=== PATIENT | female | born 1955 | race Caucasian/White ===

== ENCOUNTER 2020-05-29 12:55 | Outpatient (REF) | payer SELFPAY | END 2020-05-29 12:56 | disposition home or self-care (01) | LOC: HO.HAP 12:55 | PROVIDERS: PCP Internal Medicine; Referring Provider Internal Medicine; Visit Provider Internal Medicine | DX: Z46.1 Encounter for fitting and adjustment of hearing aid (principal) | CPT/HCPCS: 99499 ==

== ENCOUNTER 2020-08-25 09:47 | Outpatient (REF) | payer OTHER, SELFPAY ==
--- NOTE | ~2020-08-25 | MM_ITS ---
EXAMINATION: MM SCREENING DIGITAL BREAST TOMOSYNTHESIS, BILATERAL CLINICAL INFORMATION: Screening. Asymptomatic. The lifetime risk of breast cancer based on the Tyrer-Cuzick Model is 5%. COMPARISON: Mammography: 08/20/2019, 08/14/2018, 05/15/2017 TECHNIQUE: Digital breast tomosynthesis is performed in both the craniocaudal and mediolateral oblique views along with computer-aided detection (CAD). Synthesized 2D images are generated from the tomosynthesis. FINDINGS: There are scattered areas of fibroglandular density (ACR BI-RADS breast composition Category b). There is fine fibronodular parenchymal pattern similar to prior studies. There is no developing density or interval mass or architectural abnormality. No abnormal calcifications. The axilla and skin contours are unremarkable. No significant changes. MM/MM tomosynthesis screening BI IMPRESSION: No mammographic evidence of malignancy. ASSESSMENT: BI-RADS 1: Negative RECOMMENDATION: Routine annual mammography screening. This patient's information was entered into a reminder system with a target due date for their next mammogram.
== END 2020-08-25 09:48 | disposition home or self-care (01) ==
LOC: HO.MAMMO 09:47
PROVIDERS: PCP Internal Medicine; Visit Provider Internal Medicine
DX: Z12.31 Encounter for screening mammogram for malignant neoplasm of breast (principal)
CPT/HCPCS: 77063; 77067

== ENCOUNTER 2021-08-15 08:24 | Outpatient (REF) | payer MEDICARE, SELFPAY ==
--- NOTE | 2021-08-15 11:23 | MHC.AU.AHA ---
Adult Audiological Evaluation Date of Visit: 08/15/21 Reason for Appointment: Audiological evaluation to determine if there has a been a change in hearing sensitivity. Ms. Schmidt has a longstanding history of asymmetrical hearing loss, worse in the left ear. She uses a BiCROS hearing aid system. She notes that the hearing aids have been working well, but feels her hearing may be gradually decreasing. She denies any changes to her medical history. Previous Hearing Test Results: Dr. Varela's office, 07/31/2014- Moderate sloping to profound sensorineural hearing loss bilaterally (tested during active ear infection, right ear thresholds reduced) Screening test on right ear at our clinic 10/16/2014- improved hearing post-ear infection in the right ear, moderate sloping to severe sensorineural hearing loss. Ear History: Recent Ear Infections: Both Ears Ear Infections in Childhood: Both Ears Hearing Instrument History- Right Ear: Website Designer: Phonak Model: Virto V90-312 Serial Number: [id number] Battery Size: 312 Repair Warranty: 04/17/2018 Dispensed By: [facility] Date of Fittin03/28/2015 Hearing Instrument History- Left Ear: Website Designer: Phonak Model: CROS II 312 Serial Number: [id number] Battery Size: 312 Warranty: 04/17/2016 Dispensed By: [facility] Date of Fittin03/28/2015 Otoscopy: Right Ear: Unremarkable Left Ear: Unremarkable Tympanometry: Tympanometry performed due to: To assess integrity of the middle ear system Right Ear: Normal Middle Ear System (Type A) Left Ear: Normal Middle Ear System (Type A) Hearing Evaluation: Transducer(s) Used: Insert earphones, Bone Conduction Method: Conventional Audiometry Stimuli Used: Pure Tones Right Ear: Description of Hearing: Moderate to severe sensorineural hearing loss from 250-8000 Hz. Left Ear: Description of Hearing: Severe to profound sensorineural hearing loss 250-8000 Hz. Hearing in the left ear is 15-25 dBHL worse than the right across all frequencies tested. Speech Recognition Threshold (SRT): Method Used: Monitored Live Voice Stimuli Used: Spondee Words Right Ear: 55 dBHL Left Ear: 80 dBHL Word Discrimination: Method: Recorded Lists Word Lists Used: NU-6 Right Ear: 76% at 85 dBHL Left Ear: 1/10 correct at 100 dBHL. Patient noted that although it was loud, she could not understand the words. Discontinued test. Most Comfortable Level (MCL): Right Ear: 85 dBHL Left Ear: DNT Comparison: Compared to the most recent evaluation: Hearing is stable. Recommendations: Audiological re-evaluation in one year. Hearing aid maintenance performed today. Hearing aid(s) reprogrammed with updated test results. Diagnosis: Primary Diagnosis: H90.3 Bilateral Sensorineural Hearing Loss Services Performed: Comprehensive Audiological Evaluation (CPT 48798) Tympanometry (CPT 51255) Signature: Provider: Javan Cardenas, CCC-A
== END 2021-08-15 08:25 | disposition home or self-care (01) ==
LOC: HO.SH 08:24
PROVIDERS: Visit Provider Internal Medicine
DX: Z01.118 Encounter for examination of ears and hearing with other abnormal findings (principal); H90.3 Sensorineural hearing loss, bilateral
CPT/HCPCS: 92557; 92567

== ENCOUNTER 2021-10-24 08:33 | Outpatient (REF) | payer MEDICARE, SELFPAY ==
--- NOTE | ~2021-10-24 | MM_ITS ---
EXAMINATION: MM SCREENING DIGITAL BREAST TOMOSYNTHESIS, BILATERAL CLINICAL INFORMATION: Screening. Asymptomatic. The lifetime risk of breast cancer based on the Tyrer-Cuzick Model is 4.7%. COMPARISON: Mammography: 08/25/2020 and studies dating back to 11/19/2011. TECHNIQUE: Digital breast tomosynthesis is performed in both the craniocaudal and mediolateral oblique views along with computer-aided detection (CAD). Synthesized 2-D images are generated from the tomosynthesis. FINDINGS: The breasts are heterogeneously dense, which may obscure small masses (ACR BI-RADS breast composition Category c). There is a stable parenchymal pattern of the left breast with no new abnormal dominant mass or suspicious grouping of microcalcifications. About the medial aspect of the right breast approximately 5 cm from the nipple, there is a partially circumscribed density containing a grouping of increasing calcifications with the density measuring approximately 6 mm in diameter. Recommend spot magnification views and craniocaudal and 90-degree mediolateral views. MM/MM tomosynthesis screening BI IMPRESSION: Right breast density and calcifications for further evaluation, as described. ASSESSMENT: BI-RADS 0: Incomplete - Need Additional Imaging Evaluation. RECOMMENDATION: 1. Additional views of the right breast. 2. Targeted ultrasound if warranted after review of the additional views. 3. Radiology department staff will contact the patient for additional imaging. This patient's information was entered into a reminder system with a target due date for their next mammogram.
== END 2021-10-24 08:34 | disposition home or self-care (01) ==
LOC: HO.MAMMO 08:33
PROVIDERS: Visit Provider Internal Medicine
DX: Z12.31 Encounter for screening mammogram for malignant neoplasm of breast (principal)
CPT/HCPCS: 77063; 77067

== ENCOUNTER 2021-11-08 10:56 | Outpatient (REF) | payer MEDICARE, BC, SELFPAY ==
--- NOTE | ~2021-11-08 | MM_ITS ---
EXAMINATION: MM DIAGNOSTIC DIGITAL, RIGHT CLINICAL INFORMATION: Calcifications with questioned density COMPARISON: Mammography: 08/25/2020 and studies dating back to 05/21/2012 TECHNIQUE: Digital mammography is performed in the following views: Spot magnification views in craniocaudal and 90 degree mediolateral views. FINDINGS: The breasts are heterogeneously dense, which may obscure small masses (ACR BI-RADS breast composition Category c). The grouping of calcifications does not appear to be related to a new density with approximately 4 calcifications none which have linear branching forms. No lucent centers are identified and these do not appear to be skin calcifications. Either 6 month follow-up magnification views of the right breast or a stereotactic core biopsy could be considered. Results are discussed with the patient at time of visit. Breast center hollow handle bench worker will call referring provider's office with the above recommendation. MM/MM added views RT IMPRESSION: Increasing grouping of calcifications about the superomedial aspect of the right breast without linear or branching forms. ASSESSMENT: BI-RADS 4: Suspicious (subcategory 4A: Low suspicion for malignancy) RECOMMENDATION: Stereotactic core biopsy versus consideration of 6 month follow-up magnification views of the right breast. Patient stated that she would like to talk to her primary care doctor before deciding.
== END 2021-11-08 10:57 | disposition home or self-care (01) ==
LOC: HO.MAMMO 10:56
PROVIDERS: Visit Provider Internal Medicine
DX: R92.1 Mammographic calcification found on diagnostic imaging of breast (principal)
CPT/HCPCS: 77065

== ENCOUNTER 2021-11-14 07:57 | Outpatient (REF) | payer MEDICARE, SELFPAY ==
--- NOTE | ~2021-11-14 | MM_ITS ---
EXAMINATION: STEREOTACTIC TOMOSYNTHESIS-GUIDED VACUUM-ASSISTED BREAST BIOPSY, RIGHT SPECIMEN RADIOGRAPH, RIGHT POST PROCEDURE DIGITAL MAMMOGRAM, RIGHT CLINICAL INFORMATION: Tight group of a few new calcifications anterior upper inner right breast. COMPARISON: Mammography 11/08/2021, 10/24/2021, 08/25/2020, 08/20/2019. TECHNIQUE/PROCEDURE: Informed consent was obtained from the patient after discussion of the benefits, risks, and alternatives to biopsy today. Patient appeared to understand. Gave opportunity for questions. Patient signed consent form. BIOPSY TABLE: Girltank Prone Biopsy System. LESION: Tight group of a few calcifications anterior upper inner right breast. LOCAL ANESTHESIA: 10 mL carbonated 1% lidocaine; 10 mL 1% lidocaine with epinephrine. DERMATOTOMY: Single skin armando dermatotomy performed. NEEDLE: Elivariva 9-gauge vacuum assisted core biopsy device. APPROACH: craniocaudal. TARGETING: Combination of digital breast tomosynthesis and stereotactic digital mammography used for targeting. CORES: 6. CLIP: ePetWorldurMark T-shaped marker. SPECIMEN RADIOGRAPH: Specimen radiograph is taken in separate room using digital mammography. There is one core with a group of 6 calcifications which vary in size corresponding to the targeted lesion. Another core has a single calcification. POST PROCEDURE UNILATERAL DIGITAL MAMMOGRAM: The post biopsy mammogram is performed in separate room using separate digital mammography equipment from the biopsy procedure. CC and ML views are obtained. There are scattered areas of fibroglandular density (breast composition category: b). Breast tissue composition borders on heterogeneously dense. The clip marker is in position. The calcifications are markedly decreased at the biopsy site consistent with the sampling and no longer clearly visualized. No gross hematoma. The patient tolerated the procedure well. No immediate complications. Home instructions reviewed with the patient. Final pathology results are pending. MM/MM stereotactic biopsy RT IMPRESSION: 1. Digital tomosynthesis-guided core biopsy right breast with clip placement. 2. Specimen radiograph taken and post procedure mammogram. There is satisfactory positioning of the biopsy clip. 3. Final pathology results pending. An addendum report will be issued.
[2021-11-14] MEDS: Lidocaine HCl 1 % 20 ML VIAL 10 ML SUBCUT (09:55)
[2021-11-14] MEDS: Sodium Bicarbonate 8.4% 50 MEQ/50 ML VIAL SUBCUT (09:58)
== END 2021-11-14 07:58 | disposition home or self-care (01) ==
LOC: HO.MAMMO 07:57
PROVIDERS: Visit Provider Internal Medicine
DX: R92.0 Mammographic microcalcification found on diagnostic imaging of breast (principal)
CPT/HCPCS: 19081; 88305; A4648

== ENCOUNTER 2022-10-28 08:13 | Outpatient (REF) | payer MEDICARE, SELFPAY ==
--- NOTE | ~2022-10-28 | MM_ITS ---
EXAMINATION: MM SCREENING DIGITAL BREAST TOMOSYNTHESIS, BILATERAL CLINICAL INFORMATION: Screening. Asymptomatic. The lifetime risk of breast cancer based on the Tyrer-Cuzick Model is 5.0%. COMPARISON: Mammography: November 14, 2021 and studies dating back to April 02, 2016 TECHNIQUE: Digital breast tomosynthesis is performed in both the craniocaudal and mediolateral oblique views along with computer-aided detection (CAD). Synthesized 2D images are generated from the tomosynthesis. FINDINGS: The breasts are heterogeneously dense, which may obscure small masses (ACR BI-RADS breast composition Category c). There are no significant masses, abnormal calcifications, or other abnormalities. MM/MM tomosynthesis screening BI IMPRESSION: No significant changes ASSESSMENT: BI-RADS 1: Negative RECOMMENDATION: Routine annual mammography screening. This patient's information was entered into a reminder system with a target due date for their next mammogram.
== END 2022-10-28 08:14 | disposition home or self-care (01) ==
LOC: HO.MAMMO 08:13
PROVIDERS: PCP Internal Medicine; Visit Provider Internal Medicine
DX: Z12.31 Encounter for screening mammogram for malignant neoplasm of breast (principal)
CPT/HCPCS: 77063; 77067

== ENCOUNTER 2023-09-04 08:04 | Outpatient (REF) | payer SELFPAY ==
--- NOTE | 2023-09-04 10:18 | MHC.AU.HA3 ---
Hearing Instrument Follow-Up- Binaural Date of Visit: 09/04/23 Right Ear: Make, Model, Color, Serial Number: Bob Salas V90-312 SN: [id number] Color: [place] Concrete Pipe Plant Supervisor Repair Warranty: 04/17/2018 Concrete Pipe Plant Supervisor Loss and Damage Warranty: 04/17/2018 Battery Size: 312 Type of Wax Guard: CeruStop Dispensed By: [facility] Date of Fittin03/28/2015 Left Ear: Make, Model, Color, Serial Number: Bob Salas CROS II-312 SN: [id number] Color: [place] Concrete Pipe Plant Supervisor Repair Warranty: 04/17/2016 Concrete Pipe Plant Supervisor Loss and Damage Warranty: 04/17/2016 Battery Size: 312 Dispensed By: [facility] Date of Fittin03/28/2015 Follow-Up Summary: Sara reported her right hearing aid sounds weak. Upon inspection, wax guard partially occluded and significant wax build up noted inside the hearing aid behind the wax guard. Cleaned hearing aid and CROS. Attempted to remove as much wax as possible from inside hearing aid. Removed enough to significantly improve sound quality; however, unable to fully clean out. Replaced wax guard. Sara noticed immediate improvement in office. Discussed option to send for repair; however, she is ready to pursue new hearing aids instead. Sara reported that she has a [employer] benefit through her insurance. Explained that she would need to go to a [employer] provider. She will call her insurance to inquire. Briefly discussed hearing aids and provided gatian sheet. If she decides to pursue hearing aids here, she will obtain a doctor's order for an updated hearing test first. Recommendations: Hearing instrument follow-up or maintenance as needed. Please contact our clinic with any questions or concerns. Diagnosis Code(s): Primary Diagnosis: H90.3 Bilateral Sensorineural Hearing Loss Signature: Provider: Ji Leonard, [facility]
== END 2023-09-04 08:05 | disposition home or self-care (01) ==
LOC: HO.HAP 08:04
PROVIDERS: Visit Provider Internal Medicine
DX: Z46.1 Encounter for fitting and adjustment of hearing aid (principal); H90.3 Sensorineural hearing loss, bilateral
CPT/HCPCS: 92593

== ENCOUNTER 2023-11-03 08:24 | Outpatient (REF) | payer MEDICARE, SELFPAY ==
--- NOTE | ~2023-11-03 | MM_ITS ---
EXAMINATION: MM SCREENING DIGITAL BREAST TOMOSYNTHESIS, BILATERAL CLINICAL INFORMATION: Screening. Asymptomatic. COMPARISON: Mammography: 10/28/2022, 10/24/2021, 08/25/2020, 08/20/2019, and dating back to 2014. Benign stereotactic biopsy right breast 11/14/2021. TECHNIQUE: Digital breast tomosynthesis is performed in both the craniocaudal and mediolateral oblique views along with computer-aided detection (CAD). Synthesized 2D images are generated from the tomosynthesis. FINDINGS: The breasts are heterogeneously dense, which may obscure small masses (ACR BI-RADS breast composition Category c). Post benign biopsy clip noted in the upper inner right breast, middle one third. Benign scattered dystrophic appearing calcifications right greater than left breasts. No suspicious grouping or pleomorphism. Somewhat nodular appearing heterogeneously dense parenchymal pattern is not significantly changed from previous. No developing masses, or developing regions of architectural distortion. No skin or axillary abnormalities. MM/MM tomosynthesis screening BI IMPRESSION: No mammographic evidence of malignancy. Stable benign findings ASSESSMENT: BI-RADS BI-RADS 2 - Benign Findings RECOMMENDATION: Routine annual mammography screening. 1 year F/U This examination should not preclude the clinical evaluation of a suspicious palpable abnormality. This patient's information was entered into a reminder system with a target due date for their next mammogram.
== END 2023-11-03 08:25 | disposition home or self-care (01) ==
LOC: HO.MAMMO 08:24
PROVIDERS: PCP Internal Medicine; Visit Provider Internal Medicine
DX: Z12.31 Encounter for screening mammogram for malignant neoplasm of breast (principal)
CPT/HCPCS: 77063; 77067

== ENCOUNTER → 2023-11-03 08:30 | Outpatient (BNV) | payer MEDICARE, SELFPAY | PROVIDERS: PCP Internal Medicine; Visit Provider Radiology Diagnostic Radiology | DX: Z12.31 Encounter for screening mammogram for malignant neoplasm of breast (principal) | CPT/HCPCS: 77063; 77067 ==

== ENCOUNTER 2023-12-18 10:00 | Outpatient (REF) | payer MEDICARE, SELFPAY | END 2023-12-18 10:01 | disposition home or self-care (01) | LOC: HO.SH 10:00 | PROVIDERS: Visit Provider Internal Medicine | DX: Z01.118 Encounter for examination of ears and hearing with other abnormal findings (principal); H90.3 Sensorineural hearing loss, bilateral | CPT/HCPCS: 92552; 92556 ==

== ENCOUNTER 2023-12-24 12:38 | Outpatient (REF) | payer SELFPAY ==
--- NOTE | 2023-12-25 08:21 | MHC.AU.HA1 ---
Hearing Aid Evaluation Date of Visit: 12/25/23 Historical Information: Description of Hearing: Right ear: moderate to moderately severe SNHL Left ear: moderately severe to severe SNHL Current personal amplification information, if applicable: Phonak Virto V90 312 bicros Summary: Sara contacted her insurance company after our last visit and decided she would like to move forward with hearing aids through our office as her [employer] plan does not offer Phonak aids. Reviewed options for current biCROS technology-- Sara elected to stay with disposable batteries as she relies on her hearing aids and does not want to depend on a rechargeable battery. For this reason we will order Phonak P90 13T biCROS with slimtips in sand beige (Lumity not available in non-rechargeable option at this time, Phonak does not know if this will change anytime soon and Sara does not want to wait). Impressions taken for earmolds without incident, her ITCs have canal locks which she finds helpful so will order earmolds with locks as well. Will contact patient once aids arrive; medical clearance to be submitted to PCP. Hearing Aid Prescription: Based on the individual?s shared listening needs, communication environments, dexterity, desire for connectivity, and personal preferences, the following prescription for amplification has been made: Right ear: Make, Model, Color: Phonak Audeo P90 13T, sand beige Battery Size: 13 Dobby Looms Pegger/Slim Tube: 1P Type of Earmold/Dome/CShell/SlimTip: canal lock slimtip Left ear: Left ear prescription to be same as Right Hearing Aid above: Make, Model, Color: Phonak Audeo P CROS 13, sand beige Battery Size: 13 Dobby Looms Pegger/Slim Tube: 1 CROS transmitter Type of Earmold/Dome/CShell/SlimTip: canal lock slimtip Plan of Care: Patient wishes to purchase hearing aids as prescribed Action Taken/Action Needed: Earmold Impressions Taken Medical Clearance to be requested from PCP/ENT Hearing Instrument Fitting to be scheduled when materials arrive Primary Diagnosis: H90.3 Bilateral Sensorineural Hearing Loss Signature: Provider: Javan Ellis, CCC-A
--- NOTE | 2023-12-25 08:22 | MHC.AU.MED ---
Medical Clearance for Hearing Instrumentation Date: 12/25/23 Patient Name: Sara Schmidt Date of : 1955 Primary Care Provider: Referring Provider: Suraj Arteaga MD We have seen your patient on 12/25/23 and have determined that they are a candidate for amplification (See accompanying report). Specifically, they would benefit from: Hearing aid use in both ears There is a statute that addresses Medical Evaluation Requirements prior to fitting a patient with a hearing aid. According to [place] statute 265 CMR:6.03(1), (a) General. Except as provided in 265 CMR 6.03(1)(b), a certified medical transcriptionist shall not sell a hearing aid unless the prospective user has presented to the certified medical transcriptionist a written statement signed by a licensed physician that states that the patient's hearing loss has been medically evaluated and the patient may be considered a candidate for a hearing aid. The medical evaluation must have taken place within the preceding six months. Please note: Due to the [place] Statute referenced above, we cannot accept a signature other than that of a licensed physician. AIRCRAFT ASSEMBLER and PA signatures cannot be accepted. I am in agreement with the above recommendation. There is no medical contraindication for hearing instrumentation. Physician Signature Date Physician Name (Printed)
== END 2023-12-24 12:39 | disposition home or self-care (01) ==
LOC: HO.HAP 12:38
PROVIDERS: Visit Provider Internal Medicine
DX: Z46.1 Encounter for fitting and adjustment of hearing aid (principal); H90.3 Sensorineural hearing loss, bilateral
CPT/HCPCS: 92590

== ENCOUNTER 2024-01-13 14:21 | Outpatient (REF) | payer SELFPAY ==
--- NOTE | 2024-01-13 16:28 | MHC.AU.HA2 ---
Hearing Instrument Fitting- Adult Date of Visit: 01/13/24 Hearing Instruments Dispensed: Right Ear: Make, Model, Color, Serial Number: Phonak Audeo P90 13T, sand beige S#[id number] Contract Admin Repair Warranty: 02/02/2027 Contract Admin Loss and Damage Warranty: 02/02/2027 [facility] Service Plan: n/a Battery Size: 13 Double End Tenoner Setter/Slim Tube: 1P Earmold/Dome/CShell/SlimTip: canal lock slimtip S#[id number] Warranty 05/03/2024 Type of Wax Guard: CeruStop Left Ear: Make, Model, Color, Serial Number: Phonak Audeo P CROS 13, sand beige S#[id number] Contract Admin Repair Warranty: 02/02/2027 Contract Admin Loss and Damage Warranty: 02/02/2027 [facility] Service Plan: n/a Battery Size: 13 Double End Tenoner Setter/Slim Tube: 1 CROS transmitter Earmold/Dome/CShell/SlimTip: canal lock slimtip [id number] Warranty 05/03/2024 Type of Wax Guard: Cerustop Accessories/Assistive Technology: Summary of Fitting: Fit with and oriented to Phonak Audeo p90 13 T right and CROS 13 left with custom slim tips. Verified to L adult 5 targets. Good subjective comfort and benefit reported. VC enabled, reviewed use. Practiced insertion and removal. Demonstrated maintenance. Reviewed precautions. Connected to iPhone for streaming calls. Interested in TV streamer, will wait and see how the TV sounds with new hearing aids first. Recommendations: Recommendations: Hearing instrument care and maintenance were discussed and practiced. The instrument(s) were paired to the patient's smartphone. A hearing instrument follow-up was scheduled. Diagnosis Code(s): Primary Diagnosis: H90.3 Bilateral Sensorineural Hearing Loss Signature: Provider: Ji Merchant, [facility]
== END 2024-01-13 14:22 | disposition home or self-care (01) ==
LOC: HO.HAP 14:21
PROVIDERS: Visit Provider Internal Medicine
DX: Z46.1 Encounter for fitting and adjustment of hearing aid (principal); H90.3 Sensorineural hearing loss, bilateral
CPT/HCPCS: V5221; V5264

== ENCOUNTER 2024-02-03 11:12 | Outpatient (REF) | payer SELFPAY | END 2024-02-03 11:13 | disposition home or self-care (01) | LOC: HO.HAP 11:12 | PROVIDERS: Visit Provider Internal Medicine | DX: Z13.89 Encounter for screening for other disorder (principal) ==

== ENCOUNTER 2024-11-08 08:35 | Outpatient (REF) | payer MEDICARE, SELFPAY | END 2024-11-08 08:36 | disposition home or self-care (01) | LOC: HO.MAMMO 08:35 | PROVIDERS: PCP Internal Medicine; Visit Provider Internal Medicine | DX: Z12.31 Encounter for screening mammogram for malignant neoplasm of breast (principal) | CPT/HCPCS: 77063; 77067 ==

== ENCOUNTER → 2024-11-08 09:00 | Outpatient (BNV) | payer MEDICARE, SELFPAY | PROVIDERS: PCP Internal Medicine; Visit Provider Internal Medicine | DX: Z12.31 Encounter for screening mammogram for malignant neoplasm of breast (principal) | CPT/HCPCS: 77063; 77067 ==

== ENCOUNTER 2025-03-17 12:07 | Outpatient (REF) | payer SELFPAY ==
--- NOTE | 2025-03-17 12:51 | MHC.AU.HA3 ---
Hearing Instrument Follow-Up- Binaural Date of Visit: 03/17/25 Right Ear: Pj, Model, Color, Serial Number: Bob Desaio P90 13T, ameena martin S#[id number] Senior Structural Engineer Repair Warranty: 02/02/2027 Senior Structural Engineer Loss and Damage Warranty: 02/02/2027 [facility] Service Plan: n/a Battery Size: 13 Human Resources Assistant/Slim Tube: 1P Earmold/Dome/CShell/SlimTip:canal lock slimtip S#[id number] Warranty 05/03/2024 Type of Wax Guard: CeruStop Dispensed By: [facility] Date of Fittin03/28/2015 Left Ear: Pj, Model, Color, Serial Number: Bob Arroyoeo P CROS 13, ameena martin S#[id number] Senior Structural Engineer Repair Warranty: 02/02/2027 Senior Structural Engineer Loss and Damage Warranty: 02/02/2027 [facility] Service Plan: n/a Battery Size: 13 Human Resources Assistant/Slim Tube: 1 CROS transmitter Earmold/Dome/CShell/SlimTip: canal lock slimtip [id number] Warranty 05/03/2024 Type of Wax Guard: Cerustop Dispensed By: [facility] Date of Fittin03/28/2015 Follow-Up Summary: Sara reports intermittent static ongoing a few weeks. Cleaned all, replaced wax guard on BARAKAT, brushed out microphones. Found right aid weak and noted static distortion especially with high pitch sounds or scratching on the CROS device. Tested with a stock mover- sound is much louder and clearer with no distortion or static from CROS either. Unfortunately only P promotions specialist in stock is a 3 which would be too long for Sara to use even temporarily. Ordering in warranty promotions specialist from [employer]. Sara already has an appt. scheduled for 04/05. Advised that if she could possibly do a drop off to have the new promotions specialist put in she would likely have this problem solved much sooner than 04/05. She will consider. Recommendations: Recommendations: Patient will be contacted when materials have arrived. Recommendations (Other): Has appt. 04/05, offer walk-in if she wants to get it done sooner. Diagnosis Code(s): Primary Diagnosis: H90.3 Bilateral Sensorineural Hearing Loss Signature: Provider: Ji Merchant, CCC-A
--- OUTSIDE RECORDS SUMMARY | 2025-03-17 14:37 | XMS_ITS | Clinical Summary ---
Author Organization [facility] Address [address] [place] [address] Care Team Providers Care Learning Technologist Name Role Phone Unknown, Primary Care Provider Unavailabl e Social History Tobacco Use Types Packs/Day Years Used Date Smoking Tobacco: Never Assessed Sex and Gender Information Value Date Recorded Sex Assigned at Not on file Gender Identity Not on file Sexual Orientation Not on file Job Start Date Occupation Industry Not on file Not on file Not on file Plan of Treatment Health Maintenance Due Date Last Done Comments Hepatitis C Screening 1955 COVID-19 Vaccine (#1) 1955 Depression Screening 1968 Preventative Health Evaluation 1974 DTap / Tdap / Td (1 - Tdap) 1975 Colon Cancer Screening (Colonoscopy) 2001 Breast Cancer Screening (Mammogram) 2006 Shingrix-Zoster Vaccine (1 of 2) 2006 Fall Risk Assessment 2021 Osteoporosis Screening (DEXA Scan) 2021 Pneumococcal Vaccine (1 of 1 - PCV) 2021 Influenza Vaccine (#1) 2025 06/03/2015 RSV Adult > 60+ Yrs or Pregn ant (1 - 1-dose 75+ series) 2031 Hepatitis B Vaccines Aged Out No long er eligible based on patient's age to complete this topic RSV Ped < 20 months Aged Out No longe r eligible based on patient's age to complete this topic Care Teams Learning Technologist Relationship Specialty Start Date End Date Unknown, PCP - General 01/14/24
== END 2025-03-17 12:08 | disposition home or self-care (01) ==
LOC: HO.HAP 12:07
PROVIDERS: Visit Provider Internal Medicine
DX: Z13.89 Encounter for screening for other disorder (principal)

== ENCOUNTER 2025-03-30 10:55 | Outpatient (REF) | payer SELFPAY ==
--- NOTE | 2025-03-30 11:51 | MHC.AU.HA3 ---
Hearing Instrument Follow-Up- Binaural Date of Visit: 03/30/25 Right Ear: Make, Model, Color, Serial Number: Bob Garza [id number] SN: [id number] Color: Sand beige Rn Acute Dialysis Repair Warranty: 02/02/2027 Rn Acute Dialysis Loss and Damage Warranty: 02/02/2027 [facility] Service Plan: OPTED OUT Battery Size: 13 High Heel Builder/Slim Tube: 1P Earmold/Dome/CShell/SlimTip:Canal lock slimtip SN: [id number] Warranty 05/03/2024 Type of Wax Guard: CeruStop Dispensed By: [facility] Date of Fittin01/13/2024 Left Ear: Make, Model, Color, Serial Number: Bob Garza P [id number] SN: [id number] Color: Sand beige Rn Acute Dialysis Repair Warranty: 02/02/2027 Rn Acute Dialysis Loss and Damage Warranty: 02/02/2027 [facility] Service Plan: OPTED OUT Battery Size: 13 High Heel Builder/Slim Tube: 1 CROS transmitter Earmold/Dome/CShell/SlimTip: Canal lock slimtip SN: [id number] Warranty 05/03/2024 Type of Wax Guard: Cerustop Dispensed By: [facility] Date of Fittin01/13/2024 Follow-Up Summary: Replaced right farm facility manager. Noticeable improvement in sound quality. Sara inquired about options for television. Advised [employer] may directly connect to bluetooth TVs; otherwise would need TV adapter. She will look into it. Otherwise, happy to have HAs at full strength again. Recommendations: Hearing instrument follow-up or maintenance as needed. Please contact our clinic with any questions or concerns. Diagnosis Code(s): Primary Diagnosis: H90.3 Bilateral Sensorineural Hearing Loss Signature: Provider: Ji Leonard, [facility]
== END 2025-03-30 10:56 | disposition home or self-care (01) ==
LOC: HO.HAP 10:55
PROVIDERS: Visit Provider Internal Medicine
DX: Z13.89 Encounter for screening for other disorder (principal)